=== PATIENT | female | born 1930 | race Caucasian/White ===

== ENCOUNTER 2017-02-13 20:21 | Inpatient (IN) | payer MEDICARE, OTHER ==
[~2017-02-13] VITALS: Ht 152.4 cm; Wt 56.0 kg
[~2017-02-13 20:21] MED LIST: [UNRECOGNIZED DRUG - REMARK]
[2017-02-13] MEDS ORDERED: ASPIRIN 81 MG TAB PO ONE (20:30)
[2017-02-13 20:38] VITALS: TEMP 99.6
[2017-02-13 21:39] LABS: BASOPHILS % 0.3 % (0.0-2.0); EOSINOPHILS % 0.4 % (0.0-7.0); HEMATOCRIT 36.3 % (37.0-47.0); HEMOGLOBIN 11.7 g/dl (12.0-16.0); LYMPHOCYTES % 13.8 % (15.0-51.0); MEAN CORPUSCULAR HEMOGLOBIN 29.2 pg (29.0-33.0); MEAN CORPUSCULAR HGB CONC 32.2 g/dl (32.0-37.0); MEAN CORPUSCULAR VOLUME 90.5 fl (82.0-101.0); MONOCYTE # 0.7 10^3/ul (0.3-0.9); MONOCYTES % 9.9 % (0.0-11.0); NEUTROPHIL # 5.4 10^3/ul (1.6-7.5); NEUTROPHILS % 75.5 % (39.0-77.0); PLATELET COUNT 192 10^3/UL (140-415); RED BLOOD COUNT 4.01 10^6/ul (4.20-5.40); WHITE BLOOD COUNT 7.2 10^3/ul (4.8-10.8)
--- NOTE | 2017-02-13 21:44 | RADRPT ---
PROCEDURE: XR Chest. CLINICAL INDICATION: Chest pain. TECHNIQUE: AP Portable chest. COMPARISON: No pertinent prior examinations were submitted for comparison. FINDINGS: There is moderate cardiomegaly. The lungs are clear. The osseous structures are unremarkable. IMPRESSION: No acute findings. RPTAT: HIKT .Meek Lui MD, MD Date Time Electronically viewed and signed by .Meek Lui MD, MD on 02/13/2017 21:43 .T/
[2017-02-13 21:56] LABS: CALCIUM 8.8 mg/dl (8.4-10.2); CREATININE 1.46 mg/dl (0.44-1.00); GLUCOSE 126 mg/dl (70-220); POTASSIUM 3.7 mmol/L (3.5-5.1); SODIUM 142 mmol/L (135-144)
[2017-02-13 21:57] LABS: ANION GAP 20 (8-16); BLOOD UREA NITROGEN 21 mg/dl (7-20); CARBON DIOXIDE 18 mmol/L (21-31); CHLORIDE 108 mmol/L (97-110)
--- NOTE | 2017-02-13 22:07 | ERD ---
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 fib with RVR. The patient is on metoprolol, and her family members do not know for sure if it was for blood pressure or for something else. However, they are adamant that prior to yesterday, she had never had palpitations prior. The patient also endorses left-sided chest discomfort with fatigue and mild shortness of breath. The patient denies feeling sick recently. The patient denies fever or chills. The patient has had no headache or vision changes. The patient does not endorse neck or back pain. The patient denies lightheadedness or dizziness. The patient denies nausea or vomiting. The patient denies abdominal pain or changes to bowel movements or urination. The patient has had no focal deficits. The patient has had no weakness or numbness or tingling to the face or extremities. ROS All systems reviewed and are negative except as per history of present illness. Medications Home Meds Reported Medications Hydrocodone/Acetaminophen (Curtis 5-325 Tablet) 1 Each Tablet, 1 EACH PO, TAB TAKE ONE TABLET BY MOUTH EVERY 6HOURS NEEDED 02/13/17 Folic Acid* (Folic Acid*) 1 Mg Tablet, 1 MG PO DAILY, TAB 02/13/17 Megestrol Acetate* (Megestrol Acetate*) 40 Mg Tablet, 40 MG PO BID, TAB 02/13/17 Donepezil* (Donepezil*) 10 Mg Tablet, 10 MG PO DAILY, #30 TAB 02/13/17 Metoprolol Succinate* (Toprol XL*) 50 Mg Tab.er.24h, 50 MG PO DAILY, #30 TAB 02/13/17 Escitalopram Oxalate* (Escitalopram Oxalate*) 5 Mg Tablet, 5 MG PO DAILY, #30 TAB 02/13/17 Ergocalciferol (Vitamin D2) (VITAMIN D2) 50,000 Unit Capsule, 06690 UNIT PO, CAP TAKE ONE CAPSULE BY MOUTH ONCE A WEEK 02/13/17 Doxylamine Succinate* (Unisom Sleep Aid*) 25 Mg Tablet, 25 MG PO HS Y for SLEEP , TAB 02/13/17 Sennosides* (Senna Lax*) 8.6 Mg Tablet, 1 TAB PO DAILY Y for CONSTIPATION, TAB TAKE ONE TO TWO TABLETS BY MOUTH NEEDED 02/13/17 Discontinued Reported Medications [Unknown At This Time] No Conflict Check 08/11/09 Allergies Allergies: Coded Allergies: No Known Drug Allergies (Verified Allergy, Mild, 08/11/09) PMhx/Soc History of Surgery: No Hx Neurological Disorder: No Hx Respiratory Disorders: No Hx Cardiac Disorders: Yes (HTN) Hx Psychiatric Problems: Yes (Dementia, Depression) Hx Miscellaneous Medical Probl: Yes (CKD) Hx Alcohol Use: No Hx Substance Use: No Hx Tobacco Use: No FmHx Family History: No coronary disease, No diabetes Physical Exam Vitals Vital Signs Date Time Temp Pulse Resp B/P Pulse Ox O2 Delivery O2 Flow Rate FiO2 02/13/17 20:38 99.6 102 20 02/13/17 20:23 98.5 110 18 141/81 96 Physical Exam Const: No apparent distress, well-developed, well-nourished Head: Normocephalic, Atraumatic Eyes: Normal Conjunctiva. Extraocular movements intact. Pupils equal, round and reactive to light ENT: Normal External Ears, Nose and Mouth. Neck: Full range of motion. No meningismus. Resp: Clear to auscultation bilaterally, No wheezes, rales or rhonchi Cardio: Irregularly irregular rhythm, tachycardia resolved. No murmurs, rubs or gallops Abd: Soft, non tender, non distended. Normal bowel sounds Skin: No petechiae or rashes Back: No midline tenderness. No CVA tenderness Ext: No cyanosis, or edema Neur: Awake and alert, oriented 4. Cranial nerves intact. No facial droop. Normal strength, sensation and coordination. Psych: Normal Mood and Affect Result Diagram: 02/14/17 0838 02/14/17 0838 Results 24 hrs Laboratory Tests Test 02/13/17 21:00 White Blood Count 7.210^3/ul Red Blood Count 4.0110^6/ul Hemoglobin 11.7g/dl Hematocrit 36.3% Mean Corpuscular Volume 90.5fl Mean Corpuscular Hemoglobin 29.2pg Mean Corpuscular Hemoglobin Concent 32.2g/dl Red Cell Distribution Width 13.0% Platelet Count 83551^3/UL Mean Platelet Volume 11.0fl Neutrophils % 75.5% Lymphocytes % 13.8% Monocytes % 9.9% Eosinophils % 0.4% Basophils % 0.3% Nucleated Red Blood Cells % 0.0/100WBC Neutrophils # 5.410^3/ul Lymphocytes # 1.010^3/ul Monocytes # 0.710^3/ul Eosinophils # 0.010^3/ul Basophils # 0.010^3/ul Nucleated Red Blood Cells # 0.010^3/ul Sodium Level 142mmol/L Potassium Level 3.7mmol/L Chloride Level 108mmol/L Carbon Dioxide Level 18mmol/L Anion Gap 20 Blood Urea Nitrogen 21mg/dl Creatinine 1.46mg/dl Glucose Level 126mg/dl Calcium Level 8.8mg/dl Troponin I < 0.012ng/ml Current Medications Medications (Trade) Dose Ordered Sig/Ravin Route PRN Reason Start Time Stop Time Status Last Admin Dose Admin Aspirin (Aspirin) 324 mg ONCE ONCE PO 02/13/17 20:30 02/13/17 20:31 DC Procedures/MDM MDM The patient's presentation warrants further investigation. The patient initially presented in A. fib with RVR. However, it was only slight tachycardia , and this resolved on its own. The patient is on metoprolol. It is unclear if this is for hypertension or for rate control. Patient does not have a known diagnosis of atrial fibrillation, however. She will likely require admission to the hospital for her chest discomfort as well as further evaluation of her A. fib with consideration of anticoagulation. LABS The patient's blood work was obtained and reviewed. The patient's CBC shows no leukocytosis and no left shift. The patient is afebrile and does not appear systemically ill. I do no suspect a systemic infection. The patient is no anemic today. The patient's platelet count is unremarkable. The patient's CMP shows no signs of metabolic or electrolyte emergencies. The patient has unremarkable renal and hepatic function testing. EKG EKG read by me: Rate/Rhythm: Irregularly irregular rhythm and tachycardic at 101 bpm, indicating atrial fibrillation with RVR Intervals: Normal QRS and QTc. No P waves [place]: Normal Impression: Nonspecific repolarization abnormality including T-wave flattening, but no evidence of acute ischemia or arrhythmia IMAGING There is moderate cardiomegaly. The lungs are clear. The osseous structures are unremarkable. IMPRESSION: No acute findings. Electronically viewed and signed by .Meek Lui MD, MD on 02/13/2017 21:43 TREATMENT/DISPOSITION The patient did not require any medications for rate control in the emergency department. The patient's troponin is negative, which is reassuring. She will require serial EKGs and repeat troponin in the hospital. The patient does not have a diagnosis of thyroid disease. However, if this is in fact new onset A. fib, this may be a consideration as well. At this time, I feel that the patient requires admission for further evaluation and management. The patient will be admitted to Panel in accordance with the patient's insurance. The patient was accepted by Dr. Ochoa at 2303PM on February 14, 2017. The patient's blood pressure was elevated at greater than 120/80 while in the emergency department. The patient was otherwise stable with no evidence of hypertensive urgency or emergency or end organ damage. The patient is on metoprolol already. This may be further evaluated in the hospital. Disclaimer: Inadvertent spelling and grammatical errors are likely due to EHR/ dictation software use and do not reflect on the overall quality of patient care. Note that the electronic time recorded on this note does not necessarily reflect the actual time of the patient encounter. Departure Diagnosis: Primary Impression: Afib Atrial fibrillation type: unspecified Qualified Code: I48.91 - Atrial fibrillation, unspecified type Additional Impressions: Chest pain Chest pain type: unspecified Qualified Code: R07.9 - Chest pain, unspecified type CKD (chronic kidney disease) Chronic kidney disease stage: unspecified stage Qualified Code: N18.9 - Chronic kidney disease, unspecified CKD stage Condition: Serious (ERASED) ZULEYKA BARR MD Feb 13, 2017 22:07
[2017-02-13 22:08] LABS: TROPONIN-I < 0.012 ng/ml (0.00-0.12)
[2017-02-13] MEDS ORDERED: SENN-53 PO (23:03)
[2017-02-13] MEDS ORDERED: FOLI-49 PO (23:03)
[2017-02-13] MEDS ORDERED: MEGE40TA17 PO (23:03)
[2017-02-13] MEDS ORDERED: HYDR-906 PO (23:03)
[2017-02-13] MEDS ORDERED: DONE10TA7 PO (23:03)
[2017-02-13] MEDS ORDERED: ESCI5TAB10 PO (23:03)
[2017-02-13] MEDS ORDERED: METO-319 PO (23:03)
[2017-02-13] MEDS ORDERED: ERGO500037 PO (23:03)
[2017-02-13] MEDS ORDERED: DOXY25TA33 PO (23:03)
[2017-02-13] MEDS ORDERED: ONDANSETRON 4 MG INJ IV PRN (23:30)
[2017-02-13] MEDS ORDERED: ACETAMINOPHEN 325 MG TAB PO PRN (23:30)
[2017-02-14] VITALS (9 sets, daily range): BP systolic 134–158; BP diastolic 78–114; PULSE 83–154; RESP 16–20; Ht 152.4 cm; Wt 56.0 kg
[2017-02-14] MEDS ORDERED: morphine 2 MG INJ IV ONE (01:25)
[2017-02-14] MEDS ORDERED: DOCUSATE SODIUM 100 MG CAP PO PRN (01:30)
[2017-02-14] MEDS ORDERED: BISACODYL (EC) 5 MG TAB PO PRN (01:30)
[2017-02-14] MEDS ORDERED: NACL 0.9% 3 ML SYG IV SCH (01:30)
[2017-02-14] MEDS ORDERED: ONDANSETRON 4 MG INJ IV PRN (01:30)
[2017-02-14] MEDS ORDERED: ACETAMINOPHEN 325 MG TAB PO PRN (01:30)
[2017-02-14] MEDS ORDERED: ENOXAPARIN 60 MG/0.6 ML SYG SC SCH (01:30)
--- NOTE | 2017-02-14 01:38 | HP ---
Date/Time of Note Date/Time of Note DATE: 02/14/17 TIME: 01:25 Assessment/Plan VTE Prophylaxis VTE Prophylaxis Intervention: LMWH Lines/Catheters IV Catheter Type (from [facility]): Saline Lock Assessment/Plan Chief Complaint/Hosp Course This is a 86 year female being admitted to the telemetry floor for: #1 Atrial fibrillation: Onset unknown at this time, assumption at this point is new onset however family does state patient was complaining of palpitations over the past few weeks and she was started on metoprolol however patient does not tolerate the medication well which causes her to be lethargic so she is not taking it regularly. Current time trend troponins, check cmp, magnesium, tsh. 2d echo in the AM. CHADSvasc score: 3. At the current time will initiate Lovenox with renal dosing as her creatine clearance < 30. Will need to discuss with cardiology regarding manager long term care AC and whether patient will be deemed a candidate. She is currently rate controlled so we will not initiate any rate controlling medications at this time. Will defer to cardiology, appreciate cardiology consultation. #2 Right shoulder arthritis: patient uses pain patches at home. At the current time will provide voltaren gel. One time dose of morphine 1mg x 1. #3 ROMELIA: likely acute on chronic: check urine studies, renal u/s #4 Mild dementia: continue donepizil #5 Palpitations: possibly due to #1, however does not have a documented history of A. fib. Will hold metoprolol at this time as patient does not tolerate it well according to family. #6 Poor appetite: unknown cause, possibly due to dementia. Primary care physician has been managing this, continue outpatient work up. Continue Megace. #7 Dvt and gi prophylaxis, lovenox, no gi prophylaxis indicated. Further treatment strategy will be implemented as per the clinical course Problems: HPI/ROS Admit Date/Time Admit Date/Time Feb 13, 2017 at 23:05 Hx of Present Illness Chief complaint: Chest pain This is an 86-year-old female presenting with chest pain. Patient reports that she was complaining of left-sided chest pain along with palpitations. The family is at the bedside was providing the history. Family states that for the last few weeks she has been complaining of palpitations she was seen by her primary care doctor who started her on metoprolol. She denies any shortness of breath or diaphoresis. Currently her chest pain is gone however she is mainly complaining of right shoulder pain. However metoprolol family states that she appears very lethargic and does not even talk so the family does not give her the metoprolol on a regular basis. Patient also is complaining of right shoulder pain which is chronic as she has right shoulder arthritis for which she wears nonprescription pain patches. The family denies any previous knowledge of atrial fibrillation. Allergies: NKDA Medications: See FLORA YIP Const: As per HPI Eyes : No pain discharge or redness or change in visual acuity ENT: No pain, sore throat, congestion, congestion, dysphagia or discharge Respiratory: No shortness of breath, cough, sputum, wheezing, or pleuritic pain Cardiovascular: As per HPI GI : no change in appetite, abdominal pain, nausea, vomiting, diarrhea, constipation, or change in the color his stool Genitourinary: No dysuria, hematuria, flank pain , discharge or CVA tenderness Musculoskeletal: As per HPI Skin: No rash, bruising or hives Neuro: No headache, dizziness, syncope, seizure, focal weakness Endocrine: No polyuria, polydipsia, temperature intolerance Psych: No hallucination, depression, anxiety or suicidal ideation PMH/Family/Social Past Medical History Right shoulder arthritis, palpitations, mild dementia? Past Surgical History right hip surgery, right leg surgery Family History Significant Family History: no pertinent family hx Social History Alcohol Use: none Smoking Status: Never smoker Drug Use: none Exam/Review of Systems Vital Signs Vitals Vital Signs Date Time Temp Pulse Resp B/P Pulse Ox O2 Delivery O2 Flow Rate FiO2 02/14/17 00:25 100 02/13/17 20:38 99.6 20 02/13/17 20:23 141/81 96 Exam Exam General: She is lying in bed repeatedly saying that she has pain on her right shoulder and she would like something for the pain, she is asking for a patch. Denying chest pain at this time. HEENT: Atraumatic, normocephalic. The pupils are equal, round and reactive. Extraocular motor are intact Neck: Supple with full range of motion. No rigidity or meningismus Chest: Nontender Lungs: Clear to auscultation bilaterally no crackles rales or wheezing Heart: Irregularly irregular, currently rate controlled, no overt murmurs appreciated on auscultation Abdomen: Soft , nontender, nondistended , bowel sounds are present. No guarding no rebound tenderness , No masses or organomegaly. No costovertebral temporal angle mass Extremities: Normal to inspection, no edema no cyanosis Neurologic: Normal mental status, speech normal, cranial nerves II through XII are intact, motor and sensory are intact, no focal weakness Musculoskeletal: Tenderness palpation along the right lateral shoulder and right upper back, no erythema or warmth noted on exam. Additional Comments PROCEDURE: XR Chest. CLINICAL INDICATION: Chest pain. TECHNIQUE: AP Portable chest. COMPARISON: No pertinent prior examinations were submitted for comparison. FINDINGS: There is moderate cardiomegaly. The lungs are clear. The osseous structures are unremarkable. IMPRESSION: No acute findings. RPTAT: HIKT .Meek Lui MD, MD Date Time Electronically viewed and signed by .Meek Lui MD, MD on 02/13/2017 21:43 .T/ CC: ZULEYKA BARR MD Rate/Rhythm: Irregularly irregular rhythm and tachycardic at 101 bpm, indicating atrial fibrillation with RVR Intervals: Normal QRS and QTc. No P waves [place]: Normal Impression: Nonspecific repolarization abnormality including T-wave flattening, but no evidence of acute ischemia or arrhythmia As per ED physician documentation Labs Result Diagram: 02/13/17 2100 02/13/17 2100 Medications Medications Current Medications Ondansetron HCl (Zofran Inj) 4 mg Q6H PRN IV NAUSEA AND/OR VOMITING; Start at 01:30; Status UNV Acetaminophen (Tylenol Tab) 650 mg Q6H PRN PO PAIN LEVEL 1-3 OR FEVER; Start 02/14/17 at 01:30; Status UNV Docusate Sodium (Colace) 100 mg Q12H PRN PO CONSTIPATION; Start 02/14/17 at 01 :30; Status UNV Bisacodyl (Dulcolax) 5 mg DAILY PRN PO CONSTIPATION; Start 02/14/17 at 01:30; Status UNV Diclofenac Sodium (Voltaren 1% Gel) 2 gm QID TP ; Start 02/14/17 at 01:30; Status UNV Enoxaparin Sodium (Lovenox) 55 mg Q24H SC ; Start 02/14/17 at 01:30; Status NATALIE DE SANTIAGO Feb 14, 2017 01:37
[2017-02-14] MEDS: DICLOFENAC SODIUM 1% GEL 100 GM TUBE TP SCH ×3 (02:43→13:59)
[2017-02-14 02:55] LABS: CREATINE KINASE 35 IU/L (23-200)
[2017-02-14 03:06] LABS: CK-MB 0.37 ng/ml (0.0-2.4)
[2017-02-14 03:45] LABS: TROPONIN-I < 0.012 ng/ml (0.00-0.12)
[2017-02-14 09:01] LABS: BASOPHILS % 0.1 % (0.0-2.0); EOSINOPHILS % 0.1 % (0.0-7.0); HEMATOCRIT 35.1 % (37.0-47.0); LYMPHOCYTES % 13.7 % (15.0-51.0); MEAN CORPUSCULAR HEMOGLOBIN 30.2 pg (29.0-33.0); MEAN CORPUSCULAR HGB CONC 34.2 g/dl (32.0-37.0); MEAN CORPUSCULAR VOLUME 88.4 fl (82.0-101.0); MEAN PLATELET VOLUME 11.3 fl (7.4-10.4); MONOCYTE # 0.8 10^3/ul (0.3-0.9); MONOCYTES % 10.2 % (0.0-11.0); NEUTROPHIL # 5.6 10^3/ul (1.6-7.5); NEUTROPHILS % 75.5 % (39.0-77.0); PLATELET COUNT 179 10^3/UL (140-415); RED BLOOD COUNT 3.97 10^6/ul (4.20-5.40); RED CELL DISTRIBUTION WIDTH 13.2 % (11.5-14.5); WHITE BLOOD COUNT 7.4 10^3/ul (4.8-10.8)
[2017-02-14 09:23] LABS: ALBUMIN 3.8 g/dl (3.3-4.9); ALBUMIN/GLOBULIN RATIO 1.08; BILIRUBIN,INDIRECT 1.6 mg/dl (0-1.1); BILIRUBIN,TOTAL 1.6 mg/dl (0.2-1.3); CALCIUM 9.3 mg/dl (8.4-10.2); CREATININE 1.25 mg/dl (0.44-1.00); MAGNESIUM 1.8 mg/dl (1.7-2.5); TOTAL PROTEIN 7.3 g/dl (6.1-8.1)
[2017-02-14 09:24] LABS: POTASSIUM 3.9 mmol/L (3.5-5.1)
[2017-02-14 09:51] LABS: THYROID STIMULATING HORMONE 0.837 MIU/L (0.465-4.680)
--- NOTE | 2017-02-14 10:58 | RADRPT ---
Echocardiogram Report Patient Name: JUDE TOWNSEND Gender: Female Date: 1930 Study Date: 14-Feb-2017 Private Security Guard: CRISTINE Location: I Ref. Physician: NATALIE OSULLIVAN Quality: Good Procedures: Transthoracic echocardiogram with complete 2D, M-Mode, and doppler examination. Indications: Atrial Fibrillation. 2D/M Mode Doppler Measurement Value Normal Ranges Measurement Value Normal Ranges AoR Diam MM 3.4 cm KEIRA Vmax 2.1 cm2 ACS MM 1.8 cm KEIRA VTI 2.1 cm2 LA/Ao MM 1.2 AV Mean Raffi 1.0 m/sec LA Dimen MM 4.1 cm AV Mean PG 4.4 mmHg LVIDd 2D 4.1 3.5 - 5.6 cm AV Peak Raffi 1.3 m/sec LVIDs 2D 3.2 2.1 - 4.1 cm AV Peak PG 7.2 mmHg LVPWd 2D 1.1 0.6 - 1.1 cm AV VTI 22.6 cm IVSd 2D 1.1 0.6 - 1.1 cm AI Peak PG 82.5 mmHg EDV 2D 74.9 cm3 AI Peak Raffi 4.5 m/sec ESV 2D 33.3 cm3 AI PHT 540.3 msec LVOT Diam 1.9 cm LVOT Peak Raffi 1.0 m/sec LVOT Peak PG 4.2 mmHg MV E Peak Raffi 1.0 m/sec MV A Peak Raffi 0.3 m/sec MV E/A 3.4 MV Decel Time 201 msec MV Decel Josephine 5 MV E/A 3.4 TR Peak Raffi 2.9 m/sec TR Peak PG 32.6 mmHg Findings Left Ventricle: Lower limits of normal systolic function. Normal left ventricular cavity size. Mild concentric left ventricular hypertrophy. Ejection fraction is visually estimated at 50 %. Right Ventricle: Normal right ventricular size. Normal right ventricular systolic function. Left Atrium: There is severe enlargement of left atrium. Right Atrium: There is severe enlargement of right atrium. Mitral Valve: Mild mitral annular calcification. Mild mitral valve regurgitation. Aortic Valve: Aortic sclerosis without stenosis. Mild to moderate aortic valve regurgitation. Tricuspid Valve: Estimated peak PA systolic pressure 41 mmHg. There is moderate tricuspid regurgitation. Pulmonic Valve: There is mild pulmonic regurgitation. Pericardium: Normal pericardium with no significant pericardial effusion. Aorta: Normal aortic root. IVC: Dilated IVC with respiratory collapse consistent with elevated right atrial pressure. Conclusions 1.Lower limits of normal systolic function. Normal left ventricular cavity size. Mild concentric left ventricular hypertrophy. Ejection fraction is visually estimated at 50 %. 2.Aortic sclerosis without stenosis. Mild to moderate aortic valve regurgitation. 3.Moderate tricuspid regurgitation. 4.Severe biatrial enlargement. 5.Estimated peak PA systolic pressure 41 mmHg based on RA pressure of 8 mmHg. Electronically Signed By: Claus Chase 14-Feb-2017 10:56:52 -0800 Patient Name: JUDE TOWNSEND Study Date: 14-Feb-2017 [id number]
[2017-02-14] MEDS ORDERED: SENNA TAB PO PRN (11:00)
[2017-02-14] MEDS ORDERED: METOPROLOL (XL) 50 MG TAB PO SCH (11:00)
[2017-02-14] MEDS ORDERED: DILTIAZEM (CD) 120 MG CAP PO SCH (11:00)
--- NOTE | 2017-02-14 11:57 | CONS ---
Date/Time of Note Date/Time of Note DATE: 02/14/17 TIME: 11:48 Assessment/Plan Assessment/Plan Chief Complaint/Hosp Course Chronic atrial fibrillation: Diagnosed 08/13. Pt was having palpitations which have resolved with improvement in HR. She did not tolerate metoprolol so will try diltiazem. CHADSVASC is 4 and pt/family are agreeable to anticoagulation. Acute on chronic diastolic heart failure: EF ~50%. Mild by exam and no symptoms so will just give one dose of lasix prior to discharge. h/o fall s/p hip ORIF: per family pt uses a walker but does not have frequent falls -start diltiazem 120mg daily -start Eliquis 2.5mg BID (can start tonight) -lasix 20mg IV x1 -pt ok for discharge and will see me in 1-2 weeks for further medication management Problems: Consultation Date/Type/Reason Admit Date/Time Feb 13, 2017 at 23:05 Date of Consultation: Feb 14, 2017 Type of Consultation: Cardiology Reason for Consultation Chest pain. Afib Referring Provider: NATALIE OSULLIVAN of Present Illness 86 yo F with a h/o diastolic heart failure, hip ORIF 08/13 after a fall, who presented with palpitations and was found to have afib with RVR. The family at bedside tells me that she was diagnosed with afib with RVR in July after her fall and hip surgery. She was treated by her PCP and was given metoprolol but apparently everytime the pt took it she felt weak and so the daughter stopped giving it to her. Yesterday the pt started to have palpitations again and the daughter did give metoprolol but brought her in for evaluation as they were afraid she was having an OH. She ruled out for OH. Her symptoms resolved with improvement in HR and the pt/family would like to go home. Her HR off meds is now ~90-100. She denies SOB, orthopnea, edema though daughter tells me that she had significant edema post surgery and was on lasix but now has been held. per HPI Past Medical History per hPI Social History Alcohol Use: none Smoking Status: Never smoker Drug Use: none Exam/Review of Systems Vital Signs Vitals Vital Signs Date Time Temp Pulse Resp B/P Pulse Ox O2 Delivery O2 Flow Rate FiO2 02/14/17 11:32 98.4 95 16 136/78 96 Intake and Output 02/13/17 02/13/17 02/14/17 15:00 23:00 07:00 Intake Total 200 ml Balance 200 ml Exam Constitutional: alert, oriented Psych: nl mood/affect, no complaints Head: atraumatic, normocephalic Eyes: nl conjunctiva ENMT: nl external ears & nose Neck: jvd (7-8cm), supple Respiratory: No clear to auscultation (mild crackles ) Cardiovascular: systolic murmur (2/6 SAMMY), No edema, No regular rate and rhythm (IRIR) Gastrointestinal: non-tender, soft, No distended Neurological: nl mental status, nl speech Skin: No rash or lesions Results Result Diagram: 02/14/1738 02/14/17 0838 Results 24 hrs Laboratory Tests Test 02/13/17 21:00 02/14/17 02:18 02/14/17 08:38 White Blood Count 7.2 7.4 Red Blood Count 4.01 L 3.97 L Hemoglobin 11.7 L 12.0 Hematocrit 36.3 L 35.1 L Mean Corpuscular Volume 90.5 88.4 Mean Corpuscular Hemoglobin 29.2 30.2 Mean Corpuscular Hemoglobin Concent 32.2 34.2 Red Cell Distribution Width 13.0 13.2 Platelet Count 192 179 Mean Platelet Volume 11.0 H 11.3 H Neutrophils % 75.5 75.5 Lymphocytes % 13.8 L 13.7 L Monocytes % 9.9 10.2 Eosinophils % 0.4 0.1 Basophils % 0.3 0.1 Nucleated Red Blood Cells % 0.0 0.0 Neutrophils # 5.4 5.6 Lymphocytes # 1.0 1.0 Monocytes # 0.7 0.8 Eosinophils # 0.0 0.0 Basophils # 0.0 0.0 Nucleated Red Blood Cells # 0.0 0.0 Sodium Level 142 142 Potassium Level 3.7 3.9 Chloride Level 108 109 Carbon Dioxide Level 18 L 22 Anion Gap 20 H 15 Blood Urea Nitrogen 21 H 18 Creatinine 1.46 H 1.25 H Glucose Level 126 104 Calcium Level 8.8 9.3 Troponin I < 0.012 < 0.012 Creatine Kinase 35 Creatine Kinase Index 1.1 Creatinine Kinase MB (Mass) 0.37 Magnesium Level 1.8 Total Bilirubin 1.6 H Direct Bilirubin 0.00 Indirect Bilirubin 1.6 H Aspartate Amino Transf (AST/SGOT) 17 Alanine Aminotransferase (ALT/SGPT) 27 Alkaline Phosphatase 44 Total Protein 7.3 Albumin 3.8 Globulin 3.50 H Albumin/Globulin Ratio 1.08 Triglycerides Level 46 Cholesterol Level 129 LDL Cholesterol, Calculated 77 HDL Cholesterol 43 Cholesterol/HDL Ratio 3.0 Thyroid Stimulating Hormone (TSH) 0.837 Digoxin Level < 0.4 L Medications Medications Current Medications Ondansetron HCl (Zofran Inj) 4 mg Q6H PRN IV NAUSEA AND/OR VOMITING; Start at 01:30 Acetaminophen (Tylenol Tab) 650 mg Q6H PRN PO PAIN LEVEL 1-3 OR FEVER; Start 02/14/17 at 01:30 Docusate Sodium (Colace) 100 mg Q12H PRN PO CONSTIPATION; Start 02/14/17 at 01 :30 Bisacodyl (Dulcolax) 5 mg DAILY PRN PO CONSTIPATION; Start 02/14/17 at 01:30 Diclofenac Sodium (Voltaren 1% Gel) 2 gm QID TP Last administered on t 08:35; Admin Dose 2 GM; Start 02/14/17 at 01:30 Donepezil HCl (Aricept) 10 mg DAILY PO ; Start 02/15/17 at 09:00 Escitalopram Oxalate (Lexapro) 5 mg DAILY PO ; Start 02/15/17 at 09:00 Folic Acid (Folic Acid) 1 mg DAILY PO ; Start 02/15/17 at 09:00 Senna (Senokot) 1 tab DAILY PRN PO CONSTIPATION; Start 02/14/17 at 11:00 Diltiazem HCl (Cardizem Cd) 120 mg DAILY PO ; Start 02/14/17 at 11:00 Apixaban (Eliquis) 2.5 mg BID PO ; Start 02/14/17 at 21:00; Status UNV Furosemide (Lasix) 20 mg ONCE ONCE IV ; Start 02/14/17 at 12:00; Stop at 12:01; Status UNV Potassium Chloride (Potassium Chloride Pwd/Soln) 20 meq ONCE ONCE PO ; Start 02/14/17 at 12:00; Stop 02/14/17 at 12:01; Status UNV HILARIA GOTTLIEB Feb 14, 2017 11:57
[2017-02-14] MEDS ORDERED: POTASSIUM CHLORIDE 20 MEQ POWDER FOR ORAL SOLN PO ONE (12:00)
[2017-02-14] MEDS ORDERED: FUROSEMIDE 20 MG INJ IV ONE (12:00)
--- NOTE | 2017-02-14 13:55 | PDOCDIS ---
Discharge Instructions DIAGNOSIS Discharge Diagnosis A. fib. CONDITION Patient Condition: Stable HOME CARE INSTRUCTIONS: Diet Instructions: Regular FOLLOW UP/APPOINTMENTS Follow-up Plan Claus Chase MD [facility] Inter[facility] Cardiology Office Address [address] [place] [address]. [address] [place] [phone] Office OTHER ORDERS: Other Orders: 1. Take medications as per prescription. 2. Take a regular diet. 3. Follow-up with cardiology () in 2 weeks. 4. Activities as tolerated. ELLIE ROSE NP Feb 14, 2017 13:55
[2017-02-14] MEDS ORDERED: APIX5TAB PO (13:59)
[2017-02-14] MEDS ORDERED: DILT120C77 PO (13:59)
--- NOTE | 2017-02-14 15:31 | DS ---
Date/Time of Note Date/Time of Note DATE: 02/14/17 TIME: 15:30 Discharge Summary Admission/Discharge Info Admit Date/Time Feb 13, 2017 at 23:05 Discharge Date/Time Feb 14, 2017 at 15:01 Discharge Diagnosis 1. Chronic atrial fibrillation. 2. Acute on chronic diastolic heart failure. No evidence of exacerbation 3. Chronic right shoulder pain. 4. Acute kidney injury. 5. Dementia. 6. Mild pulmonary hypertension. Patient Condition: Stable Consults Claus Orellana MD, Cardiology. Procedures CXR IMPRESSION: No acute findings. 2D Echocardiogram Conclusions 1. Lower limits of normal systolic function. Normal left ventricular cavity size. Mild concentric left ventricular hypertrophy. Ejection fraction is visually estimated at 50 %. 2. Aortic sclerosis without stenosis. Mild to moderate aortic valve regurgitation. 3. Moderate tricuspid regurgitation. 4. Severe biatrial enlargement. 5. Estimated peak PA systolic pressure 41 mmHg based on RA pressure of 8 mmHg. Hx of Present Illness Chief complaint: Chest pain This is an 86-year-old female who presented with chest pain. She was complaining of left-sided chest pain along with palpitations. History was obtained from the family. Family stated that for the last few weeks she has been complaining of palpitations and she was seen by her primary care doctor who started her on metoprolol. She denied any shortness of breath or diaphoresis. However, the family states that she appears very lethargic and does not even talk so the family does not give her the metoprolol on a regular basis. The patient was also complaining of right shoulder pain which is chronic as she has right shoulder arthritis for which she wears nonprescription pain patches. In the emergency room, the patient was noticed to be in atrial fibrillation with rapid ventricular response. The patient's troponins were negative. The patient also had evidence of acute kidney injury. Allergies: NKDA Medications: See MAR Hospital Course The patient was admitted to inpatient telemetry floor. Serial troponins were obtained. A 2D echocardiogram was obtained. A cardiology consult was obtained. The patient's serial troponins remained negative. The patient was ruled out for any underlying acute coronary syndrome. The patient's 2D echocardiogram showed ejection fraction of 50% with diastolic dysfunction. The echo also revealed moderate tricuspid regurgitation and severe biatrial enlargement with an estimated peak PA systolic pressure 41 mmHg. The patient was treated with a single dose of IV Lasix as per cardiology. As per cardiology the patient had chronic atrial fibrillation. The patient was not tolerating metoprolol well. Consequently, the patient was started on diltiazem. The patient's CHADSVASC score was 4 and the patient requires systemic anticoagulation for stroke prophylaxis. The patient's family was agreeable to anticoagulation. Therefore, the patient was started on factor Xa inhibitors for anticoagulation. The patient was noticed to have acute kidney injury as mentioned earlier. The patient's BUN and creatinine was improving. The patient had no evidence of any worsening uremia. The patient has underlying dementia and the patient was maintained on donepezil. She also has underlying depression and the patient was maintained on Lexapro for the same. The patient was also noticed to have 2 episodes of mild fever. The patient underwent a influenza A and B screen that was negative. The patient had no evidence of any infectious process including any cough, runny nose, sore throat, or dysuria. The patient was cleared by cardiology to be discharged home to be followed up with the same milk drier in the next 2 weeks. Hence the patient will be discharged home today. Discharge Instructions 1. Take medications as per prescription. 2. Take a regular diet. 3. Follow-up with cardiology () in 2 weeks. 4. Activities as tolerated. The patient/family verbalized understanding of the discharge instructions. At this time I would like to thank Dr. Chase for seeing the patient and providing clinical recommendations. Case discussed with Dr. Monteiro. Home Meds Active Scripts Apixaban* (Eliquis*) 5 Mg Tablet, 2.5 MG PO BID, #60 TAB Prov:ELLIE ROSE [employer] 02/14/17 Diltiazem Hcl* (Cardizem CD*) 120 Mg Cap.sr.24h, 120 MG PO DAILY, #30 TAB Prov:ELLIE ROSE [employer] 02/14/17 Reported Medications Hydrocodone/Acetaminophen ([place] 5-325 Tablet) 1 Each Tablet, 1 EACH PO, TAB TAKE ONE TABLET BY MOUTH EVERY 6HOURS NEEDED 02/13/17 Folic Acid* (Folic Acid*) 1 Mg Tablet, 1 MG PO DAILY, TAB 02/13/17 Megestrol Acetate* (Megestrol Acetate*) 40 Mg Tablet, 40 MG PO BID, TAB 02/13/17 Donepezil* (Donepezil*) 10 Mg Tablet, 10 MG PO DAILY, #30 TAB 02/13/17 Escitalopram Oxalate* (Escitalopram Oxalate*) 5 Mg Tablet, 5 MG PO DAILY, #30 TAB 02/13/17 Ergocalciferol (Vitamin D2) (VITAMIN D2) 50,000 Unit Capsule, 75575 UNIT PO, CAP TAKE ONE CAPSULE BY MOUTH ONCE A WEEK 02/13/17 Doxylamine Succinate* (Unisom Sleep Aid*) 25 Mg Tablet, 25 MG PO HS Y for SLEEP , TAB 02/13/17 Sennosides* (Senna Lax*) 8.6 Mg Tablet, 1 TAB PO DAILY Y for CONSTIPATION, TAB TAKE ONE TO TWO TABLETS BY MOUTH NEEDED 02/13/17 Discontinued Reported Medications Metoprolol Succinate* (Toprol XL*) 50 Mg Tab.er.24h, 50 MG PO DAILY, #30 TAB 02/13/17 [Unknown At This Time] No Conflict Check 08/11/09 Follow-up Plan Claus Chase MD [facility] Inter[facility] Cardiology Office Address [address] [place] [address] [address] [place] [address] Office Primary Care Provider Not On Staff Doctor Time spent on discharge: > 30 minutes Pending Labs Laboratory Tests Test 02/13/17 21:00 02/14/17 02:18 02/14/17 08:38 White Blood Count 7.210^3/ul (4.8-10.8) 7.410^3/ul (4.8-10.8) Red Blood Count 4.0110^6/ul (4.20-5.40) 3.9710^6/ul (4.20-5.40) Hemoglobin 11.7g/dl (12.0-16.0) 12.0g/dl (12.0-16.0) Hematocrit 36.3% (37.0-47.0) 35.1% (37.0-47.0) Mean Corpuscular Volume 90.5fl (82.0-101.0) 88.4fl (82.0-101.0) Mean Corpuscular Hemoglobin 29.2pg (29.0-33.0) 30.2pg (29.0-33.0) Mean Corpuscular Hemoglobin Concent 32.2g/dl (32.0-37.0) 34.2g/dl (32.0-37.0) Red Cell Distribution Width 13.0% (11.5-14.5) 13.2% (11.5-14.5) Platelet Count 41860^3/UL (140-415) 93169^3/UL (140-415) Mean Platelet Volume 11.0fl (7.4-10.4) 11.3fl (7.4-10.4) Neutrophils % 75.5% (39.0-77.0) 75.5% (39.0-77.0) Lymphocytes % 13.8% (15.0-51.0) 13.7% (15.0-51.0) Monocytes % 9.9% (0.0-11.0) 10.2% (0.0-11.0) Eosinophils % 0.4% (0.0-7.0) 0.1% (0.0-7.0) Basophils % 0.3% (0.0-2.0) 0.1% (0.0-2.0) Nucleated Red Blood Cells % 0.0/100WBC (0.0-0.0) 0.0/100WBC (0.0-0.0) Neutrophils # 5.410^3/ul (1.6-7.5) 5.610^3/ul (1.6-7.5) Lymphocytes # 1.010^3/ul (0.8-2.9) 1.010^3/ul (0.8-2.9) Monocytes # 0.710^3/ul (0.3-0.9) 0.810^3/ul (0.3-0.9) Eosinophils # 0.010^3/ul (0.0-0.5) 0.010^3/ul (0.0-0.5) Basophils # 0.010^3/ul (0.0-0.1) 0.010^3/ul (0.0-0.1) Nucleated Red Blood Cells # 0.010^3/ul (0.0-0.0) 0.010^3/ul (0.0-0.0) Sodium Level 142mmol/L (135-144) 142mmol/L (135-144) Potassium Level 3.7mmol/L (3.5-5.1) 3.9mmol/L (3.5-5.1) Chloride Level 108mmol/L (97-110) 109mmol/L (97-110) Carbon Dioxide Level 18mmol/L (21-31) 22mmol/L (21-31) Anion Gap 20 (8-16) 15 (8-16) Blood Urea Nitrogen 21mg/dl (7-20) 18mg/dl (7-20) Creatinine 1.46mg/dl (0.44-1.00) 1.25mg/dl (0.44-1.00) Glucose Level 126mg/dl (70-220) 104mg/dl (70-220) Calcium Level 8.8mg/dl (8.4-10.2) 9.3mg/dl (8.4-10.2) Troponin I < 0.012ng/ml (0.00-0.12) < 0.012ng/ml (0.00-0.12) Creatine Kinase 35IU/L (23-200) Creatine Kinase Index 1.1 Creatinine Kinase MB (Mass) 0.37ng/ml (0.0-2.4) Hemoglobin A1c 4.8% (0-5.9) Magnesium Level 1.8mg/dl (1.7-2.5) Total Bilirubin 1.6mg/dl (0.2-1.3) Direct Bilirubin 0.00mg/dl (0.00-0.20) Indirect Bilirubin 1.6mg/dl (0-1.1) Aspartate Amino Transf (AST/SGOT) 17IU/L (15-46) Alanine Aminotransferase (ALT/SGPT) 27IU/L (13-69) Alkaline Phosphatase 44IU/L (42-121) Total Protein 7.3g/dl (6.1-8.1) Albumin 3.8g/dl (3.3-4.9) Globulin 3.50g/dl (1.3-3.2) Albumin/Globulin Ratio 1.08 Triglycerides Level 46mg/dl (0-149) Cholesterol Level 129mg/dl (100-200) LDL Cholesterol, Calculated 77mg/dl HDL Cholesterol 43mg/dl (33-92) Cholesterol/HDL Ratio 3.0RATIO Thyroid Stimulating Hormone (TSH) 0.837MIU/L (0.465-4.680) Digoxin Level < 0.4ng/ml (1.0-2.0) Microbiology Date/Time Source Procedure Growth Status 02/14/17 11:45 Nasopharyngeal Influenza Types A,B Direct EIA - Final Complete ELLIE ROSE NP Feb 14, 2017 15:31
[2017-02-14] MEDS ORDERED: APIXABAN 5 MG TABLET PO SCH (21:00)
[2017-02-15] MEDS ORDERED: FOLIC ACID 1 MG TAB PO SCH (09:00)
[2017-02-15] MEDS ORDERED: DONEPEZIL 10 MG TAB PO SCH (09:00)
[2017-02-15] MEDS ORDERED: ESCITALOPRAM 10 MG TAB PO SCH (09:00)
== END 2017-02-14 15:01 | disposition home or self-care (01) | DRG 291 ==
LOC: E/R 20:21 → MS4 23:05
PROVIDERS: ADMIT Family Medicine; ATTEND Family Medicine
DX: I13.0 Hypertensive heart and chronic kidney disease with heart failure and stage 1 through stage 4 chronic kidney disease, or unspecified chronic kidney disease (principal); I50.33 Acute on chronic diastolic (congestive) heart failure; N17.9 Acute kidney failure, unspecified; F03.90 Unspecified dementia, unspecified severity, without behavioral disturbance, psychotic disturbance, mood disturbance, and anxiety; I48.2 Chronic atrial fibrillation; R07.9 Chest pain, unspecified; N18.9 Chronic kidney disease, unspecified; F32.9 Major depressive disorder, single episode, unspecified; M19.011 Primary osteoarthritis, right shoulder; Z91.81 History of falling; Z79.01 Long term (current) use of anticoagulants; Z79.82 Long term (current) use of aspirin
CPT/HCPCS: 71010; 80048; 80053; 80061; 80162; 82550; 82553; 83036; 83735; 84443; 84484; 85025; 87400; 93005; 93306; J1940; J2270